=== PATIENT | male | born 1965 | race Caucasian/White ===

== ENCOUNTER 2016-05-30 08:47 | Emergency (ER) | payer OTHER ==
[2016-05-30 08:54] VITALS: BP 171/102
--- NOTE | 2016-05-30 09:13 | ED ---
Lower Extremity - HPI Summary HPI Summary: Patient arrives s/p fall last evening and injuring left ankle and foot. He states he slipped in his driveway and thinks he inverted his ankle. The majority of the pain is located in the foot, but states some is around the ankle. He is unable to bear weight. He has been walking with a cane since yesterday, and the pain has been increasing. Denies hitting his head, LOC or other injuries. Denies pain in the knee or pain in the lower leg. Patient is on lasix and atorvastatin. Patient is obese, but otherwise healthy. Tingling in toes of left foot which began this morning. - History of Current Complaint Chief Complaint: EDExtremityLower Stated Complaint: FALL/LT ANKLE INJURY Time Seen by Provider: 05/30/16 09:00 Hx Obtained From: Patient Mechanism Of Injury: Fall From A Standing Position Onset of Pain: Immediate Onset/Duration: Hours Severity Initially: Moderate Severity Currently: Moderate Pain Intensity: 2 Pain Scale Used: 0-10 Numeric Timing: Constant Location: Is Discrete @ - left lateral ankle and superior foot Associated Signs And Symptoms: Positive: Swelling Aggravating Factor(s): Standing, Ambulation Alleviating Factor(s): Rest, Elevation Able to Bear Weight: No - Risk Factors Gout Risk Factors: Age Over 40, Male, Hyperlipidemia DVT Risk Factors: Negative Septic Arthritis Risk Factor: Negative - Allergies/Home Medications Allergies/Adverse Reactions: Allergies Allergy/AdvReac Type Severity Reaction Status Date / Time No Known Allergies Allergy Verified 09/17/14 09:28 PMH/Surg Hx/FS Hx/Imm Hx Previously Healthy: Yes Endocrine/Hematology History: Denies: Hx Diabetes, Hx Thyroid Disease Cardiovascular History: Reports: Hx Deep Vein Thrombosis, Hx Hypercholesterolemia Denies: Hx Hypertension Respiratory History: Reports: Hx Asthma, Hx Sleep Apnea Denies: Hx Chronic Obstructive Pulmonary Disease (COPD) GI History: Denies: Hx Ulcer - Surgical History Surgery Procedure, Year, and Place: appe Infectious Disease History: No Infectious Disease History: Denies: Hx Hepatitis, Hx Human Immunodeficiency Virus (HIV), History Other Infectious Disease, Traveled Outside the [place] in Last 30 Days - Family History Known Family History: Positive: Cardiac Disease, Hypertension, Diabetes - Social History Occupation: Employed Full-time Lives: With Family Alcohol Use: Occasionally Alcohol Amount: 2-3 BEERS 2-3 TIMES/WEEK Hx Substance Use: No Substance Use Type: Reports: None Smoking Status (MU): Never Smoked Tobacco Type: Cigarettes Amount Used/How Often: quit 2009 Have You Smoked in the Last Year: No Review of Systems Constitutional: Negative Cardiovascular: Negative Respiratory: Negative Genitourinary: Negative Positive: no symptoms reported, see HPI Positive: Arthralgia, Myalgia - lateral ankle and superior foot pain Positive: Other - swelling over lateral side of ankle Neurological: Negative Psychological: Normal All Other Systems Reviewed And Are Negative: Yes Physical Exam - Summary Physical Exam Summary: MSK EXAM: Thorough physical exam was performed, focusing on ankle special tests. Pain on palpation over lateral aspect and superior aspect of ankle over ATFL and deltoid ligaments. No pain on palpation over medial side. Due to patient pain around injury, physical exam was limited. Unable to perform anterior drawer test or talar tilt test d/t pain. Diaz test negative. Limited ROM. Dorsiflexion, great toe extension and plantar flexion intact however limited. No pain on palpation over medial or lateral lower extremity. No pain with knee flexion. Pulses intact bilaterally. No temperature change or pallor noted bilaterally. Slight ecchymosis and swelling noted on lateral aspect. No lesion or disruption of skin is seen. Unable to bear weight. Triage Information Reviewed: Yes Vital Signs On Initial Exam: Initial Vitals Temp Pulse Resp BP Pulse Ox 98.4 F 67 20 171/102 98 05/30/16 08:47 05/30/16 08:47 05/30/16 08:47 05/30/16 08:47 05/30/16 08:47 Vital Signs Reviewed: Yes Appearance: Positive: Well-Appearing, Well-Nourished Skin: Positive: Warm, Skin Color Reflects Adequate Perfusion, Other - swelling over lateral ankle Eyes: Positive: EOMI, ANDRES Neck: Positive: Supple, No Lymphadenopathy Respiratory/Lung Sounds: Positive: Clear to Auscultation Cardiovascular: Positive: Normal Musculoskeletal: Positive: Other - see above Neurological: Positive: Other - tingling in toes of left foot AVPU Assessment: Alert - Mir Coma Scale Coma Scale Total: 15 Procedures - Splinting Hand-Made Type: plaster Splint: posterior walking - with sugar tong Pre-Proc Neuro Vasc Exam: normal Post-Proc Neuro Vasc Exam: normal Diagnostics - Vital Signs Vital Signs Temp Pulse Resp BP Pulse Ox 05/30/16 08:47 98.4 F 67 20 171/102 98 - Laboratory Lab Statement: Any lab studies that have been ordered have been reviewed, and results considered in the medical decision making process. Lower Extremity Course/Dx - Course Course Of Treatment: Based on [place] Ankle Rules, patient sent to imaging. Xray IMPRESSION: OBLIQUE INTRA-ARTICULAR NONDISPLACED FRACTURE OF THE DISTAL FIBULA. Soft tissue swelling noted over the lateral aspect of the ankle. Medial and lateral distal lower extremity without pain and x-rays show no widening of the ankle joint regarding low suspicion for Maisonneuve fx. Plaster posterior walking applied. Neurovascular exam s/p procedure WNL. Crutches given. Patient given orthopedic follow up in 5-7 days. Encouraged Ibuprofen 600mg three times daily with meals for pain. Return precautions given. Educated patient regarding ankle injuries and healing time and need for non-weight bearing status until follow up with ortho. RX for pain medications given d/t uncontrolled pain with Motrin. Patient agrees to see Dr. Avery. Agreed to discharge home. - Diagnoses Differential Diagnosis/HQI/PQRI: Positive: Fracture (Closed), Fracture (Open), Sprain, Strain Provider Diagnoses: Fracture of distal fibula Discharge - Discharge Plan Condition: Stable Disposition: HOME Prescriptions: oxyCODONE/Acetamin 10/325(NF) [Percocet 10/325 (NF)] 1 tab PO Q6H #20 tab MDD 4 Patient Education Materials: Leg Fracture (ED) Referrals: Marlon Avery MD [Medical Doctor] - Easton Espinoza MD [Primary Care Provider] - Additional Instructions: Follow up with Dr. Kauffman office. Call today or tommorow to set up appt. Crutches for ambulation given. Ibuprofen 600mg three times daily with meals for pain. Oxycodone for breakthrough pain not well controlled with ibuprofen. Follow up with orthopedic physician in 5-7 days. If numbness, tingling, decreased sensation, increased pain, temperature changes or pallor noted in toes, come back to ER immediately. Protect the area. Do not bear weight. Ice. Not directly on the skin. Cover with a towel. Apply ice no more than 30 minutes at a time Compression: You may use and keep an beto wrap bandage over the injury to decrease swelling. Again, this should be limited and be taken off periodically to encourage early range of motion and mobilization. Elevate: Try to elevate the injured area above the heart whenever possible.
[2016-05-30] MEDS ORDERED: oxyCODONE/Acetamin 5/325 MG* TAB PO ONE (09:14)
--- NOTE | 2016-05-30 09:47 | RAD ---
INDICATION: Left ankle injury. TECHNIQUE: 3 views of the left ankle were obtained. FINDINGS: Soft tissue swelling is noted along the anterolateral aspect of the ankle. There is an oblique intra-articular nondisplaced fracture of the distal fibula. IMPRESSION: OBLIQUE INTRA-ARTICULAR NONDISPLACED FRACTURE OF THE DISTAL FIBULA.
--- NOTE | 2016-05-30 09:49 | RAD ---
INDICATION: Left foot injury. TECHNIQUE: 3 views of the left foot were obtained. FINDINGS: There is soft tissue swelling present along the dorsal aspect of the foot. Again note is made of an oblique nondisplaced fracture of the distal fibula. No additional fracture is seen. Incidental note is made of moderate to severe osteoarthritic change in the first metatarsal-phalangeal joint. IMPRESSION: OBLIQUE NONDISPLACED FRACTURE OF THE DISTAL FIBULA. NO ADDITIONAL FRACTURE IS SEEN.
[2016-05-30] MEDS ORDERED: Morphine INJ* 2 MG/ML 1 ML CARPUJECT IM ONE (10:31)
== END 2016-05-30 11:47 | disposition home or self-care (01) ==
LOC: ED 08:47
DX: S82.832A Other fracture of upper and lower end of left fibula, initial encounter for closed fracture (principal); W01.0XXA Fall on same level from slipping, tripping and stumbling without subsequent striking against object, initial encounter; R22.9 Localized swelling, mass and lump, unspecified; Y93.89 Activity, other specified; Y92.89 Other specified places as the place of occurrence of the external cause; Y99.9 Unspecified external cause status
CPT/HCPCS: 96372; 99283; A9270-GY; J2270

== ENCOUNTER 2016-08-23 09:27 | Emergency (ER) | payer OTHER ==
[2016-08-23 10:45] VITALS: BP 208/116
--- NOTE | 2016-08-23 12:07 | RAD ---
INDICATION: Cough and dyspnea x4 days COMPARISON: Similar chest x-ray dated September 17, 2014 TECHNIQUE: PA and lateral views of the chest were obtained. FINDINGS: The heart and mediastinum are normal in size and contour. Similar the previous chest x-ray there is a focal linear density at the left lung base. Lungs are grossly clear. On the lateral view chest x-ray there is faint costophrenic angle blunting. Visualized bones are normal for the patient's age. There is no radiographic evidence of free air beneath the diaphragm IMPRESSION: THERE IS A VERY SLIGHT DEGREE OF POSTERIOR COSTOPHRENIC ANGLE BLUNTING WHICH COULD REPRESENT PLEURAL EFFUSIONS ASSOCIATED WITH EXACERBATION OF CONGESTIVE HEART FAILURE IN THE CORRECT CLINICAL SETTING.
--- NOTE | 2016-08-23 22:32 | UC ---
nathaniel Norman Timothy, scribed for Nat Colvin MD on 08/23/16 at 1042 . FLU HPI - HPI Summary HPI Summary: Kenan Aguirre is a 50 yo male presenting to [facility] with head congestion, 9/10 throbbing myalgia, mildly productive cough, sore throat SOB, chest tightness, subjective fever, frontal ARAMBULA since 08/20/16. He states he damaged his spleen in the past and it currently is sore, and he has a Hx of his spleen hurting every time he is ill. In the past day Pt notes frequency of urination, he is on lasix but the frequency is higher than normal. He denies any dizziness, N/V/D. He has self-medicated with OTC medication with no relief. His MHx includes HLD, DVT, asthma, sleep apnea, tobacco use, spleen damage 7 years ago. - History of Current Complaint Chief Complaint: UCGeneralIllness Stated Complaint: BODY ACHES Time Seen by Provider: 08/23/16 11:10 Hx Obtained From: Patient Onset/Duration: Gradual Onset, Lasting Days, Still Present Severity Currently: Moderate Severity Initially: Moderate Pain Intensity: 9 Pain Scale Used: 0-10 Numeric Associated Signs & Symptoms: Positive: Fever, Myalgia, Cough, Sore Throat, Nasal Congestion - Risk Factors Influenza Risk Factors: Negative, Chronic Medical or Immunosuppresive Condition - splenic injury - Allergy/Home Medications Allergies/Adverse Reactions: Allergies Allergy/AdvReac Type Severity Reaction Status Date / Time No Known Allergies Allergy Verified 08/23/16 10:11 Home Medications: Home Medications Cold Medication 08/23/16 [History] Furosemide TAB* [Lasix TAB*] 1 tab PO DAILY 08/23/16 [History Confirmed 08/23/16 ] PMH/Surg Hx/FS Hx/Imm Hx Previously Healthy: No - splenic injury. PAULO, obesity, peripheral edema Other Endocrine History: obesity Cardiovascular History: Deep Vein Thrombosis, Other - HLD Respiratory History: Asthma, Other - sleep apnea - Surgical History Surgical History: Yes Surgery Procedure, Year, and Place: appendix - Family History Known Family History: Positive: Cardiac Disease, Hypertension, Diabetes - Social History Lives: With Family Alcohol Use: Occasionally Alcohol Amount: 2-3 BEERS 2-3 TIMES/WEEK Substance Use Type: None Smoking Status (MU): Former Smoker Type: Cigarettes Amount Used/How Often: quit 2009 Have You Smoked in the Last Year: No When Did the Patient Quit Smoking/Using Tobacco: 2010 Household Exposure Type: Cigarettes - Immunization History Most Recent Influenza Vaccination: FALL 2015 Most Recent Tetanus Shot: 2008 Most Recent Pneumonia Vaccination: 2010 Review of Systems Constitutional: Fever - subjective Skin: Negative Eyes: Negative ENT: Sore Throat, Nasal Discharge Respiratory: Shortness Of Breath Cardiovascular: Chest Pain - tightness Gastrointestinal: Negative Genitourinary: Frequency Motor: Negative Neurovascular: Negative Musculoskeletal: Myalgia Neurological: Headache Psychological: Negative All Other Systems Reviewed And Are Negative: Yes Physical Exam Triage Information Reviewed: Yes Appearance: Obese Vital Signs: Initial Vital Signs Temp 99.6 F 08/23/16 10:13 Pulse 82 08/23/16 10:13 Resp 18 08/23/16 10:13 BP 150/91 08/23/16 10:13 Pulse Ox 98 08/23/16 10:13 Vital Signs Reviewed: Yes Eye Exam: Normal ENT Exam: Normal ENT: Positive: Pharyngeal erythema - mild, Nasal congestion Dental Exam: Normal Neck exam: Normal Neck: Positive: Supple, No Lymphadenopathy Respiratory: Positive: Lungs clear - but distant breaath sounds. Cardiovascular Exam: Normal Cardiovascular: Positive: RRR, No Murmur, Brisk Capillary Refill Abdominal Exam: Normal Abdomen Description: Positive: Nontender Bowel Sounds: Positive: Present Musculoskeletal Exam: Normal Neurological Exam: Normal Neurological: Positive: Muscle Tone Normal Psychological Exam: Normal Skin Exam: Normal - Good turgor - Additional Comments Constitutional: Pt is awake, A&Ox3, in no acute distress,and cooperative. HENT: atraumatic, ANDRES, normal TMs and canals bilaterally with no discharge. The nose shows no discharge or lesions. No sinus tenderness Throat: erythematous, no purulence, teeth in good repair. There is no uvula. Neck: supple, no masses or adenopathy, no JVD, no thyromegaly. Respiratory: Lungs CTA bilaterally, no wheezing, rales, rhonchi. Distant breath sounds. Cardiovascular: RRR, no murmur. Abd: soft, obese, diffuse tenderness, mainly over the abd muscles, no masses, no organomegaly, no CVA tenderenss Bowel Sounds: present and normal Musculoskeletal: Full ROM, good color to extremities, good tone, power 5/5 in all extremities Neuro: AOx3, cooperative, coherent Skin: warm, dry, and clear, good turgor Diagnostics - Radiology CXR Xray Interpretation: No Acute Changes - IMPRESSION: THERE IS A VERY SLIGHT DEGREE OF POSTERIOR COSTOPHRENIC ANGLE BLUNTING WHICH COULD REPRESENT PLEURAL EFFUSIONS ASSOCIATED WITH EXACERBATION OF CONGESTIVE HEART FAILURE IN THE CORRECT CLINICAL SETTING. Radiology Interpretation Completed By: Radiologist - EKG Cardiac Rate: NL - 1029 - NSR @ 72 BPM, normal PRN, no ST segment elevations or depressions, normal EKG. Re-Evaluation - Re-Evaluation First Eval Re-Evaluation Time: 12:14 Change: Unchanged Comment: Discussed lab and imaging study results with Pt. Pt is agreeable to current course of Tx. Flu Course/Dx - Course Course Of Treatment: Kenan Aguirre is a 50 yo male presenting to [facility] with 9/10 myalgia, head congestion, cough, SOB, and spleen pain since 08/20/16 with a Hx of spleen pain when ill since splenic damage 7 years prior and frequency in uriantion since today. His EKG was WNL at 72 BPM. His Group A Rapid Strep Test was negative. His CXR suggests no acute changes. His UA shows elevated bilirubin and was otherwise WNL. After clinical examination and review of his lab and imaging studies, he will be discharged home with cough, URI, and elevated blood pressure without diagnosis of HTN. - Differential Dx/Diagnosis Differential Diagnosis/HQI/PQRI: Upper Respiratory Infection Provider Diagnoses: cough, URI, elevated BP without Dx of HTN Discharge - Discharge Plan Condition: Stable Disposition: HOME Prescriptions: Benzonatate CAP* [Tessalon 100 MG CAP*] 200 mg PO TID PRN #30 cap PRN Reason: Cough Patient Education Materials: Acute Cough (ED), Upper Respiratory Infection (ED) , Hypertension (ED) Forms: *Work Release Referrals: Easton Espinoza MD [Primary Care Provider] - 2 Days Additional Instructions: Please follow up with your primary care physician regarding your visit to urgent care today, particularly regarding your high blood pressure readings. Please medicated with Mucinex DM every 12 hours in addition to prescriptions. Return to urgent care with any new or recurring symptoms. The documentation as recorded by the nathaniel lee Timothy accurately reflects the service I personally performed and the decisions made by me, Nat Colvin MD.
== END 2016-08-23 12:33 | disposition home or self-care (01) ==
LOC: UCEAST 09:27
DX: N39.0 Urinary tract infection, site not specified (principal); R03.0 Elevated blood-pressure reading, without diagnosis of hypertension; E78.5 Hyperlipidemia, unspecified; Z86.718 Personal history of other venous thrombosis and embolism; Z87.891 Personal history of nicotine dependence
CPT/HCPCS: 71020; 81003; 87651; 93005; 99212; G0463

== ENCOUNTER 2016-11-30 12:37 | Emergency (ER) | payer OTHER ==
[2016-11-30 12:50] VITALS: BP 180/100
--- NOTE | 2016-12-31 08:30 | UC ---
Amilcar Norman SooYoung, scribed for Surekha Hidalgo DO on 11/30/16 at 1258 . Abdominal Pain Male HPI - HPI Summary HPI Summary: A 50 y/o M presents to [facility] with c/o severe, undulating R-sided abd pain onset this AM approx 0830. Pain radiates around his R-side to his flank and back. Pain is ranked as 9/10 and described as cramping. Associated: SOB secondary to the pain. Denies: fever, CP, n/v/d, urinary sx. Aggravating factors: deep breaths, eating. He ate ziti for lunch. No alleviating factors. PSHx: appy. Pt still has his gallbladder. - History of Current Complaint Chief Complaint: UCAbdominalPain Stated Complaint: ABDOMINAL PAIN Hx Obtained From: Patient Onset/Duration: Sudden Onset, Lasting Hours - onset this AM, Still Present Severity Initially: Severe Severity Currently: Severe Pain Intensity: 9 Pain Scale Used: 0-10 Numeric Location: Discrete At: RUQ Radiates: Yes Radiates to: Back, Flank Character: Cramping Aggravating Factor(s): Food, Deep Breaths Alleviating Factor(s): Nothing Associated Signs And Symptoms: Positive: Other - SOB second to abd pain. Negative: Fever, Chest Pain, Urinary Symptoms, Nausea, Vomiting, Diarrhea - Allergies/Home Medications Allergies/Adverse Reactions: Allergies Allergy/AdvReac Type Severity Reaction Status Date / Time No Known Allergies Allergy Verified 12/25/16 06:50 PMH/Surg Hx/FS Hx/Imm Hx Previously Healthy: No Cardiovascular History: Deep Vein Thrombosis, Other Other Cardiovascular History: hypercholesterolemia - Surgical History Surgical History: Yes Surgery Procedure, Year, and Place: appendix - Family History Known Family History: Positive: Cardiac Disease, Hypertension, Diabetes, Other - mother - gallbladder dz - Social History Occupation: Employed Full-time Lives: With Family Alcohol Use: Occasionally Alcohol Amount: 2-3 BEERS 2-3 TIMES/WEEK Substance Use Type: None Smoking Status (MU): Former Smoker Type: Cigarettes Amount Used/How Often: quit 2009 Have You Smoked in the Last Year: No When Did the Patient Quit Smoking/Using Tobacco: 2010 Household Exposure Type: Cigarettes - Immunization History Most Recent Influenza Vaccination: FALL 2015 Most Recent Tetanus Shot: 2008 Most Recent Pneumonia Vaccination: 2010 Review of Systems Constitutional: Negative Skin: Negative Eyes: Negative ENT: Negative Respiratory: Shortness Of Breath - secondary to pain Cardiovascular: Negative Gastrointestinal: Abdominal Pain - radiating to flank and back Genitourinary: Negative Motor: Negative Neurovascular: Negative Musculoskeletal: Negative Neurological: Negative Psychological: Negative All Other Systems Reviewed And Are Negative: Yes Physical Exam Triage Information Reviewed: Yes Appearance: Well-Appearing, Well-Nourished, Pain Distress - moderate to severe Vital Signs: Initial Vital Signs Temp 96.9 F 11/30/16 12:45 Pulse 70 11/30/16 12:45 Resp 16 11/30/16 12:45 BP 180/100 11/30/16 12:45 Pulse Ox 99 11/30/16 12:45 Vital Signs Reviewed: Yes Eyes: Positive: Conjunctiva Clear, Other: - no sclera icterus. Negative: Discharge ENT: Positive: Hearing grossly normal. Negative: Muffled/hoarse voice Neck exam: Normal Neck: Positive: Supple Respiratory: Positive: Lungs clear, Normal breath sounds, No respiratory distress, No accessory muscle use Cardiovascular: Positive: RRR, No Murmur Abdomen Description: Positive: Soft, Other: - exquisitely tender to palpation in RUQ, RLQ, pain refers to the back and R flank Bowel Sounds: Positive: Present Musculoskeletal Exam: Normal Musculoskeletal: Positive: Strength Intact Neurological: Positive: Alert, Muscle Tone Normal Psychological Exam: Normal Psychological: Positive: Age Appropriate Behavior Skin Exam: Normal, Other - warm, nml color, dry. no jaundice Abd Pain Male Course/Dx - Course Course Of Treatment: High blood pressure noted. Medications reviewed this visit. Former smoker. - Differential Dx/Clinical Impression Differential Diagnosis/HQI/PQRI: Gall Bladder Disease, Renal Colic, Ureteral Stone, Urinary Tract Infection Provider Diagnoses: 1. ruq pain. 2. Elevated blood pressure without diagnosis of hypertension. Discharge - Discharge Plan Condition: Stable Disposition: TRANS HIGHER L OF CARE FAC Referrals: Easton Espinoza MD [Primary Care Provider] - Additional Instructions: Your blood pressure was elevated at this visit. That does not mean you have hypertension, it is probably due to your current condition. Please follow up with your primary care provider. Please return to Urgent Care if you experience new or worsening symptoms. Lab Results - Lab Results Lab Results: 11/30/16 12:50 POC Urine Color [place] POC Urine Clarity Clear POC Urine pH 6.5 POC Ur Specif [place] >= 1.030 POC Urine Protein 1+ H POC Ur Glucose (UA) Negative POC Urine Ketones Negative POC Urine Blood Negative POC Urine Nitrite Negative POC Urine Bilirubin Negative POC Urine Urobilinogen 2.0 H POC U Leukocyte Esteras Negative The documentation as recorded by the Amilcar lee SooYoung accurately reflects the service I personally performed and the decisions made by , Surekha Hidalgo DO.
== END 2016-11-30 13:45 | disposition short-term general hospital (02) ==
LOC: UCEAST 12:37
DX: R10.11 Right upper quadrant pain (principal); R06.02 Shortness of breath; R03.0 Elevated blood-pressure reading, without diagnosis of hypertension; E78.00 Pure hypercholesterolemia, unspecified; Z86.718 Personal history of other venous thrombosis and embolism; Z87.891 Personal history of nicotine dependence
CPT/HCPCS: 81003; 99213; G0463

== ENCOUNTER 2016-11-30 13:58 | Emergency (ER) | payer OTHER ==
[2016-11-30] MEDS ORDERED: NS 0.9% 1000 ML* 1,000 ML IV ONE (14:15)
[2016-11-30 14:30] LABS: Hematocrit 46 % (42-52); Hemoglobin 15.9 g/dl (14.0-18.0); Mean Corpuscular HGB Conc 35 g/dl (31-36); Mean Corpuscular Hemoglobin 31 pg (27-31); Mean Corpuscular Volume 90 fL (80-94); Mean Platelet Volume 8 um3 (7.4-10.4); Red Blood Count 5.07 10^6/ul (4.0-5.4); Red Cell Distribution Width 14 % (10.5-15)
[2016-11-30 14:57] LABS: Albumin 4.2 g/dL (3.2-5.2); C Reactive Protein 1.65 mg/L (< 5.00); Calcium 9.3 mg/dL (8.6-10.3); EGFR African American 94.4 (>60); EGFR Non-African American 73.4 (>60); Globulin 3.2 g/dL (2-4); Total Bilirubin 0.5 mg/dL (0.2-1.0); Total Protein 7.4 g/dL (6.4-8.9)
[2016-11-30 15:34] LABS: Potassium 4.5 mmol/L (3.5-5.0)
[2016-11-30] MEDS ORDERED: Iohexol 300* (CONTRAST) 10 ML SDV IV ONE (16:03)
--- NOTE | 2016-11-30 17:53 | RAD ---
HISTORY: Right upper quadrant pain. COMPARISONS: Same day CT abdomen pelvis that shows mild to moderate right-sided hydronephrosis. TECHNIQUE: Multiple transverse and longitudinal ultrasound images were obtained of the right upper quadrant. FINDINGS: LIVER: The liver is enlarged measuring up to 25 cm in greatest dimension. The liver is homogenously hyperechogenic with the exception of the liver immediately adjacent to the gallbladder. Normal hepatic and portal venous blood flow is duplicated with color flow imaging. There is no gross intrahepatic biliary duct dilatation. GALLBLADDER AND EXTRAHEPATIC BILIARY DUCT: The gallbladder is normal in appearance without intraluminal stones or other soft tissue masses. There is no pericholecystic fluid or gallbladder wall thickening. The common bile duct measures a maximum diameter of . PANCREAS: The portions of the pancreas not obscured by bowel gas are normal in appearance. RIGHT KIDNEY: There is very mild right-sided hydronephrosis with gross dilatation of the renal pelvis and proximal most ureter similar to the appearance of the same day CT examination. AORTA AND IVC: The visualized portions are normal in appearance and not pathologically dilated. IMPRESSION: 1. 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 2. MILD RIGHT KIDNEY HYDRONEPHROSIS WITH ENLARGEMENT OF THE RIGHT RENAL PELVIS SIMILAR TO THE SAME DAY CT EXAMINATION.
[2016-11-30 17:55] VITALS: BP 166/82
[2016-11-30] MEDS: Ondansetron INJ* 2 MG/ML VIAL IV ONE ×2 (18:47→19:08)
[2016-11-30] MEDS: Morphine INJ* 4 MG/ML 1 ML CARPUJECT IV ONE ×2 (18:47→19:08)
[2016-11-30 18:59] LABS: Urine Bilirubin Negative (Negative); Urine Glucose Negative (Negative); Urine Nitrite Negative (Negative)
--- NOTE | 2016-11-30 19:14 | RAD ---
CLINICAL HISTORY: Right of midline lower abdominal pain. Relevant surgical history includes appendectomy. COMPARISON: Similar CT examination November 30, 2013 TECHNIQUE: Contrast enhanced CT examination of the abdomen and pelvis from the lung bases through the initial tuberosities. The patient received 150 mL Omnipaque 300 intravenously prior to imaging.The patient received oral contrast as well prior to imaging. FINDINGS: VISUALIZED LUNG BASES: The visualized lung bases are grossly clear. There is no pleural effusion. ABDOMEN AND PELVIS: The liver is homogenously hypodense. There are no suspicious focal liver lesions. The spleen, pancreas and adrenal glands are grossly normal in appearance. The gallbladder is normal. The left kidney is normal in appearance without focal mass, calcification or signs of hydronephrosis. There is a mild degree of right-sided hydronephrosis. The right renal pelvis is enlarged with a faint amount of infiltration in the surrounding retroperitoneal fat. Depicted best on the coronal plane images there is a sharp transition zone from dilated pelvis to proximal right ureter (coronal image 58 of 130). Distal to this point the right ureter is normal in size. No stones are seen in either ureter. The urinary bladder is mostly decompressed but there are no acute abnormalities. The oral contrast has progressed as far as the base of the cecum. The small bowel is not pathologically dilated. Surgical material seen in the base of the cecum consistent with the patient's reported history of appendectomy. There is no gross retroperitoneal or mesenteric lymphadenopathy. The pelvic viscera is normal in appearance. The mildly calcified abdominal aorta and iliac arteries are normal in course and diameter. Degenerative changes include multilevel loss of intervertebral disc height involving the lower thoracic and lumbar spine.There are no sinister bone lesions. IMPRESSION: 1. CT findings are most consistent with right side ureteropelvic junction obstruction without a readily apparent etiology. There are no renal calculi identified in the collecting systems, ureters or urinary bladder. 2. Additional chronic, degenerative and iatrogenic findings described in the body the report.
[2016-11-30] MEDS ORDERED: Ketorolac INJ* 30 MG/ML 1 ML VIAL IV PUSH ONE (19:19)
[2016-11-30 19:53] LABS: Urine Bacteria Absent (Absent)
[2016-11-30] MEDS ORDERED: oxyCODONE/Acetamin 5/325 MG* TAB PO ONE (20:28)
--- NOTE | 2016-12-08 15:10 | ED ---
Gary Norman Alfonso, scribed for Chad Yin MD on 11/30/16 at 1418 . Abdominal Pain/Male - HPI Summary HPI Summary: This patient is a 50 year old M BIBA from [facility] to [facility] with a chief complaint of right-sided abdominal pain since 0800 this morning. The CC is described as sharp and cramping. The pain radiates to his back. The patient rates the current pain 2/10 in severity, but it was much more severe [employer]. Symptoms aggravated by touch. Symptoms alleviated by nothing. Patient denies fever, chills, diaphoresis, vomiting, dysuria, hematuria, and testicular pain. He last ate at lunch today. PSHx appendectomy. Former tobacco smoker (7 years ago quit). - History of Current Complaint Chief Complaint: EDAbdPain Stated Complaint: ABD PAIN Time Seen by Provider: 11/30/16 14:14 Hx Obtained From: Patient Onset/Duration: Sudden Onset, Lasting Hours, Still Present Timing: Constant Severity Initially: Severe Severity Currently: Mild Pain Intensity: 2 Pain Scale Used: 0-10 Numeric Location: Discrete At: RUQ, Discrete At: RLQ Radiates: Yes Radiates to: Back Character: Sharp, Cramping Aggravating Factor(s): Other: - Touch Alleviating Factor(s): Nothing Associated Signs And Symptoms: Positive: Other - Patient denies fever, chills, diaphoresis, vomiting, dysuria, hematuria, and testicular pain - Allergies/Home Medications Allergies/Adverse Reactions: Allergies Allergy/AdvReac Type Severity Reaction Status Date / Time No Known Allergies Allergy Verified 11/30/16 14:12 PMH/Surg Hx/FS Hx/Imm Hx Endocrine/Hematology History: Denies: Hx Diabetes, Hx Thyroid Disease Cardiovascular History: Reports: Hx Deep Vein Thrombosis, Hx Hypercholesterolemia Denies: Hx Hypertension Respiratory History: Reports: Hx Asthma, Hx Sleep Apnea Denies: Hx Chronic Obstructive Pulmonary Disease (COPD) GI History: Denies: Hx Ulcer - Surgical History Surgery Procedure, Year, and Place: appendix Infectious Disease History: No Infectious Disease History: Denies: Hx Hepatitis, Hx Human Immunodeficiency Virus (HIV), History Other Infectious Disease, Traveled Outside the [place] in Last 30 Days - Family History Known Family History: Positive: Cardiac Disease, Hypertension, Diabetes - Social History Alcohol Use: Occasionally Alcohol Amount: 2-3 BEERS 2-3 TIMES/WEEK Hx Substance Use: No Substance Use Type: Reports: None Smoking Status (MU): Former Smoker - Quit in approx. 2009 Type: Cigarettes Amount Used/How Often: quit 2009 Have You Smoked in the Last Year: No Review of Systems Negative: Fever, Chills, Skin Diaphoresis Negative: Erythema Negative: Sore Throat Negative: Chest Pain Negative: Shortness Of Breath, Cough Positive: Abdominal Pain - right-sided. Negative: Vomiting, Nausea Positive: other - Negative testicular pain. Negative: dysuria, hematuria Negative: Myalgia, Edema Negative: Rash Neurological: Other - Negative dizziness All Other Systems Reviewed And Are Negative: Yes Physical Exam Triage Information Reviewed: Yes Vital Signs On Initial Exam: Initial Vitals Temp Pulse Resp BP Pulse Ox 98.3 F 64 20 158/83 98 11/30/16 14:05 11/30/16 14:05 11/30/16 14:05 11/30/16 14:05 11/30/16 14:05 Vital Signs Reviewed: Yes Appearance: Positive: Well-Appearing, No Pain Distress, Obese Skin: Positive: Warm, Dry Head/Face: Positive: Normal Head/Face Inspection Eyes: Positive: Conjunctiva Clear Neck: Positive: Other: - Musculoskeletal ROM normal neck. (-) JVD, (-) Stridor, (-) Tracheal deviation, (-) Cervical adenopathy Respiratory/Lung Sounds: Positive: Other - Effort normal. (-) Respiratory distress, (-) Wheezes, (-) Rales Cardiovascular: Positive: RRR, Other - Heart sounds normal; Intact distal pulses ; The pedal pulses are 2+ and symmetric. Radial pulses are 2+ and symmetric. (- ) Murmur Abdomen Description: Positive: Soft, Guarding, Other: - Exquisite RUQ tenderness and moderate RLQ tenderness. No rebound.. Negative: Distended Musculoskeletal: Negative: Edema Left, Edema Right Neurological: Positive: Alert, Oriented to Person Place, Time Psychiatric: Positive: Affect/Mood Appropriate Diagnostics - Vital Signs Vital Signs Temp Pulse Resp BP Pulse Ox 11/30/16 14:05 98.3 F 64 20 158/83 98 - Laboratory Result Diagrams: 11/30/16 13:30 11/30/16 13:30 Lab Statement: Any lab studies that have been ordered have been reviewed, and results considered in the medical decision making process. - CT A/P CT Interpretation Completed By: Radiologist - 1. CT findings are most consistent with right side ureteropelvic junction obstruction without a readily apparent etiology. There are no renal calculi identified in the collecting systems, ureters or urinary bladder. 2. Additional chronic, degenerative and iatrogenic findings described in the body the report. ED physician has reviewed this radiology report and agrees. - Additional Comments Diagnostic Additional Comments: Gallbladder US reveals, per radiologist, 1. 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 2. MILD RIGHT KIDNEY HYDRONEPHROSIS WITH ENLARGEMENT OF THE RIGHT RENAL PELVIS SIMILAR TO THE SAME DAY CT EXAMINATION. ED physician has reviewed this radiology report and agrees. Re-Evaluation - Re-Evaluation First Eval Re-Evaluation Time: 19:48 Change: Unchanged Second Eval Re-Evaluation Time: 20:25 Change: Improved Comment: Patient reports his pain has fully resolved. Abdominal Pain Fem Course/Dx - Course Assessment/Plan: This patient is a 50 year old M BIBA from [facility] to [facility] with a chief complaint of right-sided abdominal pain since 0800 this morning. The CC is described as sharp and cramping. The pain radiates to his back. The patient rates the current pain 2/10 in severity, but it was much more severe [employer]. Symptoms aggravated by touch. Symptoms alleviated by nothing. Patient denies fever, chills, diaphoresis, vomiting, dysuria, hematuria, and testicular pain. He last ate at lunch today. PSHx appendectomy. Former tobacco smoker (7 years ago quit). CT A/P reveals 1. CT findings are most consistent with right side ureteropelvic junction obstruction without a readily apparent etiology. There are no renal calculi identified in the collecting systems, ureters or urinary bladder. 2. Additional chronic, degenerative and iatrogenic findings described in the body the report. ED physician has reviewed this radiology report and agrees. Gallbladder US reveals, per radiologist, 1. 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 2. MILD RIGHT KIDNEY HYDRONEPHROSIS WITH ENLARGEMENT OF THE RIGHT RENAL PELVIS SIMILAR TO THE SAME DAY CT EXAMINATION. ED physician has reviewed this radiology report and agrees. Patient will be discharged with follow up from PCP and urology. The patient is agreeable with this plan. - Diagnoses Provider Diagnoses: Urethral colic, suspected passed stone Discharge - Discharge Plan Condition: Stable Disposition: HOME Patient Education Materials: Renal Colic (ED) Referrals: Easton Espinoza MD [Primary Care Provider] - 3 Days Mitchell Green MD [Medical Doctor] - 2 Days Additional Instructions: RETURN TO THE EMERGENCY DEPARTMENT FOR CHANGING OR WORSENING SYMPTOMS. The documentation as recorded by the Gary lee Alfonso accurately reflects the service I personally performed and the decisions made by , Chad Yin MD.
== END 2016-11-30 20:53 | disposition home or self-care (01) ==
LOC: ED 13:58
DX: R10.9 Unspecified abdominal pain (principal); Z87.891 Personal history of nicotine dependence; N36.8 Other specified disorders of urethra
CPT/HCPCS: 36415; 74177; 76705; 80053; 81003; 81015; 83605; 83690; 85025; 86140; 96374; 96375; 99282; A9270-GY; J1885; J2270; J2405; Q9967

== ENCOUNTER 2016-12-25 06:14 | Day surgery (SDC) | payer OTHER ==
--- NOTE | 2016-12-21 20:16 | HP ---
CC: Dr. Easton Espinoza * ADMITTING HISTORY AND PHYSICAL: DATE OF ADMISSION: 12/25/16 ADMITTING DIAGNOSES: 1. Right hydronephrosis. 2. Right ureteropelvic junction obstruction. PLANNED PROCEDURE: Right retrograde, right stent insertion, and possible balloon dilatation. SURGEON: Dr. Green. HISTORY OF PRESENT ILLNESS: Kenan Aguirre is a 51-year-old gentleman, who had initially been evaluated in the emergency room due to right flank and right- sided abdominal pain. CT scan had revealed right hydronephrosis and subsequently a diuretic nuclear scan was obtained. The diuretic nuclear scan revealed decreased function in the right kidney and no significant washout of the radioisotope following Lasix administration suggestive of high-grade obstruction of the right kidney. I suspect that he has a congenital ureteropelvic junction obstruction and is now being brought in for further evaluation and management. PAST MEDICAL HISTORY: Significant for high cholesterol. PAST SURGICAL HISTORY: Significant for appendectomy. MEDICATIONS ON ADMISSION: 1. Zocor 20 mg a day. 2. Lasix 20 mg daily. ALLERGIES: No known drug allergies. SOCIAL HISTORY: He is a former smoker, who quit in 2009 and had a 25- to 30- pack-year smoking history prior to that. REVIEW OF SYSTEMS: He is otherwise in excellent health. There is no history of diabetes mellitus or any other major systemic illness. PHYSICAL EXAMINATION GENERAL: Reveals a pleasant, healthy-appearing, middle-aged gentleman. VITAL SIGNS: Blood pressure is 140/92, pulse 62 per minute regular, temperature 97.5, oxygen saturation 98% on room air. LUNGS: Clear bilaterally. CARDIOVASCULAR: Regular rate and rhythm. S1 and S2. ABDOMEN: Soft with mild right flank tenderness. 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 PLANNED PROCEDURE: Right retrograde, right stent insertion, possible balloon dilatation. [id number]/[facility] #: [id number] [facility]
[~2016-12-25 06:14] MED LIST: Buffered Lidocaine 0.9% SYRIN* 5 ML/SYR SYRINGE INTRADERM ONE; Sodium Citrate/Citric Acid* 15 ML UDC PO ONE
[2016-12-25] MEDS ORDERED: Sodium Citrate/Citric Acid* 15 ML UDC ONE (06:47)
[2016-12-25] MEDS ORDERED: Buffered Lidocaine 0.9% SYRIN* 5 ML/SYR SYRINGE ONE (06:47)
[2016-12-25] MEDS ORDERED: cefTRIAXone(*) 2 GM ADDV.VIAL IVPB ONE (07:00)
[2016-12-25] MEDS ORDERED: Iohexol 180 (CONTRAST) 10 ML SDV IV ONE (07:14)
[2016-12-25] MEDS ORDERED: Lidocaine 2% PF * 5 ML VIAL ONE (07:34)
[2016-12-25] MEDS ORDERED: Propofol* 10 MG/ML 20 ML BTL IV PUSH ONE ×2 (07:34→08:35)
[2016-12-25] MEDS ORDERED: fentaNYL* 50 MCG/ML 2 ML VIAL (100 MCG VIAL) ONE ×2 (07:34→10:17)
[2016-12-25] MEDS ORDERED: Ondansetron INJ* 2 MG/ML VIAL IV PRN (07:49)
[2016-12-25] MEDS ORDERED: Furosemide IV* 10 MG/ML 2 ML VIAL (20 MG) ONE ×2 (08:33→09:04)
[2016-12-25] MEDS ORDERED: Ketorolac INJ* 30 MG/ML 1 ML VIAL ONE (08:34)
[2016-12-25] MEDS ORDERED: Tamsulosin CAP* 0.4 MG ONE (09:11)
--- NOTE | 2016-12-25 09:54 | RAD ---
INDICATION: RIGHT retrograde ureteral balloon dilatation and stent placement. COMPARISON: November 30, 2016 CT. TECHNIQUE: 19 seconds fluoroscopy. FINDINGS: Spot images document RIGHT retrograde pyelogram with moderately severe pelvicaliectasis, balloon dilatation of the ureteropelvic junction, and ureteral stent placement. IMPRESSION: Procedural fluoroscopy. CPT II Codes: 6045F
[2016-12-25] MEDS ORDERED: oxyCODONE/Acetamin 5/325 MG* TAB ONE (10:14)
[2016-12-25] MEDS: fentaNYL* 50 MCG/ML 2 ML VIAL (100 MCG VIAL) IV PRN ×2 (10:15→10:20)
[2016-12-25] MEDS ORDERED: hydrALAZINE IV* 20 MG/ML VIAL ONE (10:22)
[2016-12-25 10:43] VITALS: BP 130/84
--- NOTE | 2016-12-25 11:34 | OP ---
CC: Dr. Easton Espinoza * DATE OF OPERATION: 12/25/16 - [facility] DATE OF : 61 SURGEON: Mitchell Green MD. ANESTHESIOLOGIST: Dr. Ledezma. ANESTHESIA: General. PRE-OP DIAGNOSES: 1. Right hydronephrosis. 2. Right ureteropelvic junction obstruction. POST-OP DIAGNOSES: 1. Right hydronephrosis. 2. Right ureteropelvic junction obstruction. OPERATIVE PROCEDURE: Cystoscopy, right retrograde pyelogram, right ureteral balloon dilatation and right stent insertion. INDICATIONS: Kenan Aguirre is a 51-year-old gentleman, who had been evaluated for right flank pain. Workup was consistent with congenital right ureteropelvic junction obstruction. COMPLICATIONS: None. STENT USED: 8-Mauritian stent, right ureter. OPERATIVE FINDINGS: 1. Urethral stricture. 2. Mild median lobe enlargement of the prostate. 3. Right hydronephrosis with right ureteropelvic junction obstruction. POSTOPERATIVE CONDITION: Stable. DESCRIPTION OF PROCEDURE: After induction of general anesthesia, the patient was placed in dorsal lithotomy position. Sequential compression devices were in place and functioning. Initial cystoscopy revealed a stricture in the proximal bulbar urethra. The prostate was mildly enlarged especially the median lobe. The bladder was examined and appeared normal. A guidewire was introduced into the right orifice. Retrograde pyelogram revealed a normal appearing distal mid and proximal right ureter. There was a definite tapering noted at the ureteropelvic junction with a dilated renal pelvis and right hydronephrosis. The overall picture was consistent with a ureteropelvic junction obstruction. The ureter and the ureteropelvic junction were carefully dilated first by introducing the 4-Mauritian open ended catheter through it and next by introducing an 8-Mauritian open ended catheter through the ureteropelvic junction into the renal pelvis. Once this was done, next a balloon dilator was introduced and ureteropelvic junction was successfully balloon dilated. The balloon was left inflated for about 5 minutes. It was then deflated and removed and 8-Mauritian stent was introduced and positioned under fluoroscopy with good proximal and distal positioning obtained. The patient tolerated the procedure satisfactorily and was transferred back to recovery area in stable condition. [id number]/[facility] #: [id number] [facility]TDD
== END 2016-12-25 11:07 | disposition home or self-care (01) ==
LOC: OR 06:14
PROVIDERS: ATTEND Urology
DX: Q62.11 Congenital occlusion of ureteropelvic junction (principal); N13.30 Unspecified hydronephrosis; N35.9 Urethral stricture, unspecified; N40.0 Benign prostatic hyperplasia without lower urinary tract symptoms; Z96.0 Presence of urogenital implants; E78.00 Pure hypercholesterolemia, unspecified; Z87.891 Personal history of nicotine dependence; G47.33 Obstructive sleep apnea (adult) (pediatric)
CPT/HCPCS: 74420; A9270-GY; C1876; J0360; J0696; J1580; J1885; J1940; J2704; J3010

== ENCOUNTER 2017-10-28 16:22 | Emergency (ER) | payer OTHER ==
[2017-10-28] MEDS ORDERED: Famotidine TAB* 20 MG PO ONE (17:18)
[2017-10-28] MEDS ORDERED: Acetaminophen TAB* 325 MG PO ONE (17:18)
[2017-10-28] MEDS ORDERED: Tetan/Diph/Pertus SYR(Tdap)* 0.5 ML SYR(BOOSTRIX) use SYR IM ONE (17:24)
--- NOTE | 2017-10-28 17:33 | ED ---
Head Injury - HPI Summary HPI Summary: This is scribe Linda Cali documenting for attending Dr. Jeramie VIDES. 51 yo w M with hx GERD, otherwise well, BIBA for head injury and scalp laceration that ocurred just prior to admission. Pt states he was coming upstairs from basement and misjudged the height and struck his head. No LOC. was present on the scene immediately and states pt bled "quite a bit". No N, V, but does c/o his usual "GERD". Pt c/o headache now at site of the laceration. Pt did not take anything for pain prior to coming to the ED. Pt is not on any blood thinners. Does not take ASA daily. I, Dr. Bobo, personally performed the services described in this documentation as scribed in my presence and it is both accurate and complete. - History Of Current Complaint Chief Complaint: EDHeadInjury Stated Complaint: HEAD LAC Time Seen by Provider: 10/28/17 16:38 Hx Obtained From: Patient, Family/Hr Payroll Coordinator - Mechanism Of Injury: Direct Blow Onset/Duration: Started Minutes Ago, Traumatic, Still Present Onset of Pain: Immediate Severity Currently: Moderate Severity Initially: Mild Pain Intensity: 2 Pain Scale Used: 0-10 Numeric Location of Head Injury: Frontal, Occipital - top and back of scalp Location: Discrete At: - top and back of his head Character: Sharp Aggravating Factor(s): Other: - nothing Alleviating Factor(s): Other: - nothing Associated Signs And Symptoms: Headache - Risk Factors SDH Risk Factor: Male - Allergies/Home Medications Allergies/Adverse Reactions: Allergies Allergy/AdvReac Type Severity Reaction Status Date / Time No Known Allergies Allergy Verified 10/28/17 16:28 PMH/Surg Hx/FS Hx/Imm Hx Endocrine/Hematology History: Denies: Hx Diabetes, Hx Thyroid Disease Cardiovascular History: Reports: Hx Deep Vein Thrombosis, Hx Hypercholesterolemia Denies: Hx Hypertension Respiratory History: Reports: Hx Asthma, Hx Sleep Apnea - CPAP Denies: Hx Chronic Obstructive Pulmonary Disease (COPD) GI History: Reports: Hx Gastroesophageal Reflux Disease - prn otc med Denies: Hx Ulcer History: Reports: Hx Renal Disease - RT HYDRONEPHROSIS Psychiatric History: Denies: Hx Anxiety - Surgical History Surgery Procedure, Year, and Place: appendectomy [address] [place]. right ureteral stent Hx Anesthesia Reactions: No Infectious Disease History: No Infectious Disease History: Denies: Hx Hepatitis, Hx Human Immunodeficiency Virus (HIV), History Other Infectious Disease, Traveled Outside the [place] in Last 30 Days - Family History Known Family History: Positive: Cardiac Disease, Hypertension, Diabetes - Social History Occupation: Employed Full-time Lives: With Family Alcohol Use: Weekly Alcohol Amount: reports 4 beers or wine per week Hx Substance Use: No Substance Use Type: Reports: None Smoking Status (MU): Former Smoker Type: Cigarettes Amount Used/How Often: 1 ppd for 28 yrs Have You Smoked in the Last Year: No Review of Systems Constitutional: Negative Eyes: Negative Cardiovascular: Negative Respiratory: Negative Positive: Other - baseline GERD . Negative: Vomiting, Nausea Positive: Other - head injury, scalp laceration Skin: Negative Positive: Headache Psychological: Normal All Other Systems Reviewed And Are Negative: Yes Physical Exam - Summary Physical Exam Summary: Appearance: Well-appearing, moderate pain distress, well-nourished Skin: Warm, color reflects adequate perfusion, dry, scalp laceration as below Head: scalp laceration to top/posterior scalp, 4cm by 4cm triangular flap lac, not deep to galea, bleeding controlled Eyes: Conjunctiva clear, PERRL EOMI ENT: Normal inspection Neck: Supple, no nodes, no JVD, nontender Respiratory: Lungs clear, normal breath sounds, no respiratory distress Cardio: RRR, No murmur, pulses normal, brisk capillary refill Abdomen: Soft, nontender Musculoskeletal: Strength Intact/ROM intact, no calf tenderness, no edema. Psychological: Normal Neuro: Alert, muscle tone normal, no focal deficit, moves all extrem well, sensation grossly intact. Vital Signs On Initial Exam: Initial Vitals Temp Pulse Resp BP Pulse Ox 98.3 F 80 19 174/100 98 10/28/17 16:24 10/28/17 16:24 10/28/17 16:24 10/28/17 16:24 10/28/17 16:24 Procedures - Laceration/Wound Repair 1 Location: head Description: Irregular - triangular flap 4cm x 4cm Anesthesia: Local, 1.0% Length, Depth and Shape: triangular flap 4cm x 4cm Betadine Prep?: Yes Irrigated w/ Saline (ccs): 100 Laceration/Wound Explored: clean, no foreign body removed Closure: Multilayer - 4-0 vicryl, #5 sutures. #17 luh , Luh #__ - 17 Debridement: none Suture Type: Vicryl - 4-0 #5 internal Number of Sutures: 5 - then 17 luh external Layer Closure?: Yes Sterile Dressing Applied?: Yes Diagnostics - Vital Signs Vital Signs Temp Pulse Resp BP Pulse Ox 10/28/17 16:24 98.3 F 80 19 174/100 98 - Laboratory Result Diagrams: 10/28/17 17:39 10/28/17 17:39 Lab Statement: Any lab studies that have been ordered have been reviewed, and results considered in the medical decision making process. - CT Brain CT CT Interpretation Completed By: Radiologist - Impression: No acute intracranial pathology. ED Physician reviewed this report. Re-Evaluation - Re-Evaluation First Eval Re-Evaluation Time: 17:35 Change: Improved Comment: ARAMBULA better. Awaiting CT result. Second Eval Re-Evaluation Time: 20:15 Change: Improved Comment: wound sutured. Pt tolerated well. Head Injury Course/Dx Course Of Treatment: Pt is 51 y/o BIBA c/o head injury and scalp laceration. Brain CT showed no acute intracranial pathology. Scalp laceration was repaired in 2 layers with 5 vicryl sutures and 17 luh via sterile technique. Tetanus was updated with tdap as it was unrecalled (?7 years per pt). Wound was irrigated prior to suturing. Time out procedure was implemented prior to suturing. Pt and instructed re wound care, and advised to have definite wound check in 2 days, then staple removal in 10-14 days. Pt given Rx for 3 day course of hydrocodone, advised re opiate addiction and not to drive or operate machinery within 6 hrs of ingestion. - Diagnoses Differential Diagnosis/HQI/PQRI: Cerebral Contusion, Concussion Without LOC, Hematoma, Intracranial Bleed, Laceration, Skull Fracture Provider Diagnoses: Laceration of scalp, Head injury without skull fracture, Elevated BP without diagnosis of hypertension, Elevated liver function tests Discharge - Sign-Out/Discharge Documenting (check all that apply): Patient Departure - home - Discharge Plan Condition: Stable Disposition: HOME Prescriptions: HYDROcodone/ACETAMIN 5-325 MG* [[place] 5-325 TAB*] 1 tab PO Q4H PRN #10 tab MDD 6 PRN Reason: Severe Pain Patient Education Materials: Hydrocodone/Acetaminophen (By mouth), Head Injury (ED), Staple Care (ED) Forms: *Work Release Referrals: Easton Espinoza MD [Primary Care Provider] - 2 Days Additional Instructions: The CT of your brain did not show any skull fracture or brain abnormality. Your lab tests showed slightly elevated liver function abnormalities, but no bleeding abnormalities and no anemia. Dr. Bobo placed 5 Vicryl (dissolvable) sutures in your wound, and then [address] Bobo wants you to keep the bandage in place, and keep the wound dry (no shower, no pool) until Dr. Espinoza or a medical professional checks your wound on 10/30/17, or sooner if needed. Your blood pressure was elevated after the injury. Be sure to have Dr. Espinoza check your blood pressure on the next visit. The luh require a special tool to remove them, and they should be removed in 10-14 days. You were given one hydrocodone/acetaminophen tablet at 8:15pm. You may have 1 or 2 tabs again anytime after 12:15am, and then every four hours as needed for severe pain. Dr. Bobo dispensed 6 tablets of hydrocodone/acetaminophen 5/ 325mg for home use, until you fill your prescription at [facility]. Return to the ER if you have any new or worsening symptoms. - Billing Disposition and Condition Condition: STABLE Disposition: Home - Attestation Statements Document Initiated by Blaine: Yes Documenting Scribe: Linda Cali Provider For Whom Blaine is Documenting (Include Credential): Heather Bobo MD Scribe Attestation: Linda Norman, scribed for Heather Bobo MD on 10/30/17 at 2258. Scribe Documentation Reviewed: Yes Provider Attestation: The documentation as recorded by the Linda lee accurately reflects the service I personally performed and the decisions made by , Heather Bobo MD
--- NOTE | 2017-10-28 17:44 | RAD ---
HISTORY: scalp lac, top of head COMPARISONS: None TECHNIQUE: Multiple contiguous axial CT scans were obtained of the head without intravenous contrast. FINDINGS: HEMORRHAGE/INFARCT: There is no hemorrhage or acute infarct. MASSES/SHIFT: There is no mass or shift. EXTRA-AXIAL SPACES: There are no extra-axial fluid collections. SULCI AND VENTRICLES: The sulci and ventricles are normal in size and position for the patient's stated age. CEREBRUM: There are no focal parenchymal abnormalities. BRAINSTEM: There are no focal parenchymal abnormalities. CEREBELLUM: There are no focal parenchymal abnormalities. VESSELS: The vessels are grossly normal. PARANASAL SINUSES: There is a mucous retention cyst of the left maxillary sinus. ORBITS: The orbits are unremarkable. BONES AND SOFT TISSUE: No bone or soft tissue abnormalities are noted. OTHER: None IMPRESSION: NO ACUTE INTRACRANIAL PATHOLOGY.
[2017-10-28 17:50] LABS: ABS Basophils 0.1 10^3/ul (0-0.2); ABS Eosinophils 0.2 10^3/ul (0-0.6); ABS Lymphocytes 1.7 10^3/ul (1.0-4.8); ABS Monocytes 0.6 10^3/ul (0-0.8); ABS Neutrophils 7.2 10^3/ul (1.5-7.7); ABS Nucleated RBC 0 10^3/ul; Eosinophil % 1.6 % (0-6); Hematocrit 43 % (42-52); Hemoglobin 14.6 g/dl (14.0-18.0); Lymphocyte % 17.7 % (25-47); Mean Corpuscular HGB Conc 34 g/dl (31-36); Mean Corpuscular Hemoglobin 31 pg (27-31); Mean Corpuscular Volume 91 fL (80-94); Mean Platelet Volume 7.7 um3 (7.4-10.4); Nucleated Red Blood Cells % 0.1; Platelet Count 255 10^3/ul (150-450); Red Blood Count 4.69 10^6/ul (4.00-5.40); Red Cell Distribution Width 13 % (10.5-15); White Blood Count 9.8 10^3/ul (3.5-10.8)
[2017-10-28 17:53] LABS: INR 0.99 (0.77-1.02)
[2017-10-28 18:05] LABS: EGFR Non-African American 82.9 (>60)
[2017-10-28] MEDS ORDERED: HYDROcodone/ACETAMIN 5-325 MG* 1 TAB PO ONE (19:58)
[2017-10-28] MEDS ORDERED: Lidocaine 1%* 5 ML VIAL INJ ONE (20:16)
[2017-10-28] MEDS ORDERED: Lidocaine 1%* 5 ML VIAL ONE (20:18)
[2017-10-28 21:14] VITALS: BP 146/97
== END 2017-10-28 21:33 | disposition home or self-care (01) ==
LOC: ED 16:22
DX: S01.01XA Laceration without foreign body of scalp, initial encounter (principal); K21.9 Gastro-esophageal reflux disease without esophagitis; Z79.82 Long term (current) use of aspirin; Z86.718 Personal history of other venous thrombosis and embolism; E78.00 Pure hypercholesterolemia, unspecified; Z87.891 Personal history of nicotine dependence; S09.90XA Unspecified injury of head, initial encounter; R03.0 Elevated blood-pressure reading, without diagnosis of hypertension; R79.89 Other specified abnormal findings of blood chemistry
CPT/HCPCS: 12002; 12032; 36415; 70450; 80053; 83605; 83735; 85025; 85610; 86140; 90471; 90715; 99283; A9270-GY

== ENCOUNTER 2018-03-03 09:14 | Emergency (ER) | payer OTHER ==
[2018-03-03 09:29] VITALS: BP 158/101
--- NOTE | 2018-03-03 09:40 | UC ---
Respiratory Complaint HPI - HPI Summary HPI Summary: 52 yo male presents with fatigue, body aches, sinus pain/pressure/congestion, and left ear pain. Symptoms started with fatigue and body aches 3-4 days ago. Over the last 2 days his sinus symptoms and ear pain began and have increased in discomfort since. He tells me that he has a history of a spleen injury and, due to this, tends to get sick quickly. Has felt feverish/warm, but has not taken his temperature. Denies sore throat, SOB, chest pain, abdominal pain, n/v , diarrhea, dysuria. He also has a red area to his anterior right thigh first noticed 3 days ago and getting progressively worse. Mildly itchy and painful. - History of Current Complaint Chief Complaint: UCGeneralIllness Stated Complaint: SINUS AND EAR COMPLAINT Time Seen by Provider: 03/03/18 09:40 Hx Obtained From: Patient Onset/Duration: Gradual Onset Severity Initially: Moderate Severity Currently: Moderate Pain Intensity: 7 Pain Scale Used: 0-10 Numeric - Allergies/Home Medications Allergies/Adverse Reactions: Allergies Allergy/AdvReac Type Severity Reaction Status Date / Time No Known Allergies Allergy Verified 03/03/18 09:29 PMH/Surg Hx/FS Hx/Imm Hx - Additional Past Medical History Additional PMH: Spleen injury years ago Endocrine History: Dyslipidemia Cardiovascular History: Hypertension GI/ History: Gastroesophageal Reflux - Surgical History Surgical History: Yes Surgery Procedure, Year, and Place: appendectomy 2013[facility] [place] - Family History Known Family History: Positive: Cardiac Disease, Hypertension, Diabetes - Social History Occupation: Employed Full-time Alcohol Use: Weekly Alcohol Amount: reports 4 beers or wine per week Substance Use Type: None Smoking Status (MU): Former Smoker Type: Cigarettes Amount Used/How Often: 1 ppd for 28 yrs Have You Smoked in the Last Year: No When Did the Patient Quit Smoking/Using Tobacco: 2009 Household Exposure Type: Cigarettes - Immunization History Most Recent Influenza Vaccination: FALL 2015 Most Recent Tetanus Shot: 2008 Most Recent Pneumonia Vaccination: 2010 Review of Systems All Other Systems Reviewed And Are Negative: Yes Constitutional: Positive: Fatigue, Other - Body aches Skin: Positive: Rash Eyes: Positive: Negative ENT: Positive: Ear Ache, Nasal Discharge, Sinus Congestion, Sinus Pain/ Tenderness Respiratory: Positive: Negative Cardiovascular: Positive: Negative Gastrointestinal: Positive: Negative Neurovascular: Positive: Negative Neurological: Positive: Negative Psychological: Positive: Negative Physical Exam - Summary Physical Exam Summary: GENERAL: NAD. WDWN. No pain distress. SKIN: RIGHT anterior thigh with ~10.0cm area of dry skin and mild erythema with excoriations. No warmth, active drainage, or streaking. HEENT: Head: AT/NC Eyes: EOM intact. Conjunctiva clear without inflammation or discharge. Ears: Hearing grossly normal. LEFT TM with mild erythema and bulging. No canal edema or drainage. RIGHT TM intact and WNL. Nose: Nasal mucosa mildly swollen and erythematous with yellow discharge. TTP maxillary and frontal sinus. Positive post nasal drip Throat: Posterior oropharynx without exudates, erythema, or tonsillar enlargement. NECK: Supple. Nontender. No lymphadenopathy. CHEST: CTAB. No r/r/w. No accessory muscle use. Breathing comfortably and in no distress. CV: RRR. Without m/r/g. Pulses intact. NEURO: Alert. PSYCH: Age appropriate behavior. Triage Information Reviewed: Yes Vital Signs: Initial Vital Signs Temp 97 F 03/03/18 09:25 Pulse 73 03/03/18 09:25 Resp 18 03/03/18 09:25 BP 158/101 03/03/18 09:25 Pulse Ox 100 03/03/18 09:25 Vital Signs Reviewed: Yes UC Diagnostic Evaluation - Laboratory O2 Sat by Pulse Oximetry: 100 Respiratory Course/Dx - Course Course Of Treatment: Sinusitis. Left otitis media. Suspect eczema to right anterior thigh. Will rx for augmentin and kenalog cream. Advised to rest and drink fluids - f/u if symptoms persist or worsen. - Differential Dx/Diagnosis Provider Diagnosis: Sinusitis, Left otitis media, Eczema, dyshidrotic Discharge - Sign-Out/Discharge Documenting (check all that apply): Patient Departure All imaging exams completed and their final reports reviewed: No Studies - Discharge Plan Condition: Stable Disposition: HOME Prescriptions: Amoxicillin/Clavulanate TAB* [Augmentin TAB 875*] 875 mg PO BID #20 tab Triamcinolone 0.1% CREAM (NF) [Kenalog 0.1% Cream (NF)] 1 applic TOPICAL BID #1 tube Patient Education Materials: Cellulitis (ED), Ear Infection (ED) Referrals: Easton Espinoza MD [Primary Care Provider] - Additional Instructions: If you develop a fever, shortness of breath, chest pain, new or worsening symptoms - please call your PCP or go to the ED. Your blood pressure was high at todays visit. Please see your primary provider within 4 weeks for recheck and re-evaluation. - Billing Disposition and Condition Condition: STABLE Disposition: Home - Attestation Statements Provider Attestation: Per institutional requirements, I have reviewed the chart, however, I was not consulted specifically or made aware of this patient by the midlevel provider. I did not personally evaluate, interact with , or disposition this patient.
== END 2018-03-03 09:56 | disposition home or self-care (01) ==
LOC: UCEAST 09:14
DX: J32.9 Chronic sinusitis, unspecified (principal); H66.92 Otitis media, unspecified, left ear; L30.1 Dyshidrosis [pompholyx]; I10 Essential (primary) hypertension; Z87.891 Personal history of nicotine dependence; L30.9 Dermatitis, unspecified
CPT/HCPCS: 99212; G0463

== ENCOUNTER 2018-05-02 15:40 | Emergency (ER) | payer OTHER ==
--- OUTSIDE RECORDS SUMMARY | 2018-05-02 15:44 | XMS REPORT | Continuity of Care Document ---
:1965 External Reference #:[id number] Author Name Karenkate Xochitl Care Team Providers Name Role Phone Easton Espinoza MD Primary Care Physician Unavailable Payers Type Date Identification Numbers Payment Provider Subscriber Policy [facility]: [id number] [facility] Number: [id number] Group Name: [employer] [id number] PayID: [id number] Advance Directives Description No Information Available Problems Date Description Provider Status Onset: 04/03/2014 Dyssomnia Kailey Miller MD Active Onset: 04/03/2014 Morbid obesity Kailey Miller MD Active Onset: 06/05/2014 Obstructive sleep apnea syndrome Kailey Miller MD Active Onset: 06/05/2014 Obesity Kailey Miller MD Active Onset: 06/15/2016 Closed fracture of lateral malleolus Zara Epperson MD Active Onset: 08/03/2016 Open fracture of lateral malleolus Zara Epperson MD Active Onset: 08/03/2016 Edema Zara Epperson MD Active Onset: Mild asthma Active Family History Date Family Member(s) Problem(s) Comments General non contributory General Diabetes General Heart Disease General Stroke Father Lung Cancer Father Mother CHF,Dementia Mother alive and well, lives w/son Siblings None Social History Type Date Description Comments Sex Unknown Lives With Occupation Currently 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 Tobacco Use Start: Unknown Quit 2009 Smoked between 1/2 and 1 ppd for 30 years ETOH Use Rarely consumes alcohol Tobacco Use Start: Unknown Patient is a former End: Unknown smoker Recreational Drug Use Never Used Drugs Smoking Status Reviewed: 04/10/18 Patient is a former smoker Exercise Type/Frequency Exercises sporadically Allergies, Adverse Reactions, Alerts Description No Known Drug Allergies Medications Medication Date Status Form Strength Qnty SIG Indications Ordering Provider Compression 07/20/ Active Misc 1units knee high R60.0 Zara Stockings 2016 compression MD Zhou stockings 20-30 mmhg Simvastatin 04/02/ Active Tablets 20mg 1 by mouth Unknown 2014 every day Lasix / Active Tablets 20mg 1 by mouth Unknown 0000 every day Albuterol / Active Powder 1-2 puffs Unknown Sulfate 0000 every 4 hours as needed sob Bactrim DS 08/03/ Hx Tablets 800-160mg 14tabs take 1 tab S82.65xB Zara 2016 - twice a day MD Zhou 08/11/ for 10 days 2017 Bactrim DS 07/20/ Hx Tablets 800-160mg 20tabs take 1 by Zara 2016 - mouth twice MD Zhou 08/03/ daily x 10 2016 days Immunizations CPT Code Status Date Vaccine Lot # [id number] Given 12/27/2015 Influenza Virus Vaccine, Quadrivalent, Split, Preservative Free Vital Signs Date Vital Result Comment 04/10/2018 11:05am Height 73 inches 6'1" Weight 306.12 lb Heart Rate 64 /min BP Systolic Sitting 154 mmHg Lue large cuff BP Diastolic Sitting 100 mmHg Lue large cuff Respiratory Rate 20 /min O2 % BldC Oximetry 97 % On Ra BMI (Body Mass Index) 40.4 kg/m2 01/31/2017 2:14pm Height 73 inches 6'1" Weight 309.38 lb with shoes Heart Rate 54 /min BP Systolic Sitting 140 mmHg Lue large cuff BP Diastolic Sitting 90 mmHg Lue large cuff Respiratory Rate 16 /min O2 % BldC Oximetry 98 % On Ra BMI (Body Mass Index) 40.8 kg/m2 08/29/2016 3:32pm Height 73 inches 6'1" Weight 313.00 lb BP Systolic 130 mmHg BP Diastolic 84 mmHg Body Temperature 97.4 F Pain Level 1 BMI (Body Mass Index) 41.3 kg/m2 08/03/2016 8:13am Height 73 inches 6'1" Weight 313.00 lb Heart Rate 76 /min BP Systolic 132 mmHg BP Diastolic 90 mmHg Body Temperature 97.2 F Pain Level 1 BMI (Body Mass Index) 41.3 kg/m2 07/20/2016 8:17am Height 73 inches 6'1" Weight 313.00 lb Heart Rate 76 /min BP Systolic 116 mmHg BP Diastolic 74 mmHg Respiratory Rate 20 /min Body Temperature 97.2 F Pain Level 0 BMI (Body Mass Index) 41.3 kg/m2 06/29/2016 3:23pm Height 73 inches 6'1" Weight 313.00 lb Heart Rate 67 /min BP Systolic 139 mmHg BP Diastolic 92 mmHg Pain Level 4 BMI (Body Mass Index) 41.3 kg/m2 06/15/2016 2:58pm Height 73 inches 6'1" Weight 313.00 lb Respiratory Rate 16 /min Pain Level 2 BMI (Body Mass Index) 41.3 kg/m2 06/01/2016 9:31am Height 73 inches 6'1" Weight 313.00 lb Heart Rate 62 /min BP Systolic 152 mmHg BP Diastolic 96 mmHg Body Temperature 98.1 F Pain Level 10 BMI (Body Mass Index) 41.3 kg/m2 01/03/2016 8:15am Height 73 inches 6'1" Weight 308.25 lb Heart Rate 64 /min BP Systolic Sitting 140 mmHg BP Diastolic Sitting 88 mmHg Respiratory Rate 16 /min O2 % BldC Oximetry 96 % BMI (Body Mass Index) 40.7 kg/m2 12/25/2014 8:02am Height 73 inches 6'1" Weight 298.00 lb Heart Rate 71 /min BP Systolic Sitting 142 mmHg BP Diastolic Sitting 82 mmHg Respiratory Rate 22 /min O2 % BldC Oximetry 98 % BMI (Body Mass Index) 39.3 kg/m2 09/22/2014 8:04am Height 73 inches 6'1" Weight 303.00 lb Heart Rate 67 /min BP Systolic 142 mmHg BP Diastolic 78 mmHg Respiratory Rate 14 /min O2 % BldC Oximetry 98 % BMI (Body Mass Index) 40.0 kg/m2 06/05/2014 3:51pm Heart Rate 73 /min BP Systolic Sitting 144 mmHg BP Diastolic Sitting 82 mmHg Respiratory Rate 20 /min O2 % BldC Oximetry 98 % 04/03/2014 8:06am Height 72 inches 6'0" Weight 290.00 lb with shoes on Heart Rate 71 /min BP Systolic Sitting 142 mmHg BP Diastolic Sitting 80 mmHg Respiratory Rate 20 /min Body Temperature 97.9 F O2 % BldC Oximetry 98 % BMI (Body Mass Index) 39.3 kg/m2 Neck Circumference in inches 19 Results Description No Information Available Procedures Date Code Description Status 06/01/2016 42626 CLSD TX Distal Fib FX (Lateral Malleolus) w/o manipulation Completed 05/05/2014 15560 Polysomnography Sleep Staging 4+ Parameters W/Cpap Completed Encounters Type Date Location Provider Dx Diagnosis Office Visit 01/31/2017 [facility] Mili Laughlin, G47.33 Obstructive sleep 2:15p [facility], STRUCTURAL ENGINEERING TECHNICIAN-RADHIKA apnea (adult) [facility] (pediatric) E66.9 Obesity, unspecified Z68.41 Body mass index (BMI) 40.0-44.9, adult Office Visit 01/03/2016 [facility] Mili G47.33 Obstructive sleep 8:15a [facility] 12/25/2014 Pul[facility]ology [facility] Mili G47.33 Obstructive sleep 8:00a [facility] Laughlin RN, apnea (adult) [facility] STRUCTURAL ENGINEERING TECHNICIAN-BC (pediatric) Office Visit 09/22/2014 Pulmonology And Mili 327.23 Obstructive Sleep 8:00a [facility] Laughlin RN, [facility] 06/05/2014 Pulmonology And Kailey Miller, 327.23 Obstructive Sleep 3:45p [facility] Apnea Adult & [facility] Pediatric 278.00 Obesity Unspec Office Visit 04/03/2014 8:15a Pulmonology And Kailey 780.59 Sleep Disturbances [facility] MD Angela Other [facility] 278.01 Obesity Morbid Plan of Treatment Future Appointment(s):04/11/2019 8:15 am - Mili Laughlin DNP, RN, STRUCTURAL ENGINEERING TECHNICIAN-BC at [facility]04/10/2018 - Mili Laughlin DNP, RN, STRUCTURAL ENGINEERING TECHNICIAN- BCG47.33 Obstructive sleep apnea (adult) (pediatric)Comments:Sleep Apnea - NPSG 05/05/14 Severe PAULO, AHI 74/hour, Tin oxygen 86%, Wt 294, BMI 38.8 on CPAP 11 cm AHI 1/hourFollow up:1 yearRecommendations:Continue PAP device, Benefitting and compliant with treatment. Cleaning Wipe off mask daily (baby wipe-no scent, or warm water) Clean mask, tubing, filter, and water chamber weekly in mild no scent dish soap and water. Hang to dry. If you have any sleepiness while driving you MUST avoid operating a vehicle or machinery. If you have difficulty with your equipment, or need to replace your mask or hoses, please contact your homecare agency. A weight change of 20 pounds or more may have an effect onyour equipment; if you are experiencing problems please call for an appointment. If you have any further questions, please call the [facility] at [phone] Nasal congestionRecommendations:left side swelling, recommend seeing ENT, defer to primary care. Recommend trying Neti pt rinse daily using distilled water and Alkalol salt [id number] Body mass index (BMI) 40.0-44.9, adultRecommendations:recommend weight loss
[2018-05-02 15:51] VITALS: BP 167/100
--- NOTE | 2018-05-02 15:53 | UC ---
Ear Complaint HPI - HPI Summary HPI Summary: 52 yo male presents with right ear pain. He tells me that for the last 2 weeks he has been having sinus pain/pressure/congestion. He went to see his PCP about a week ago and was given augmentin for this. Over the last 2-3 days he has developed right ear pain with clear/bloody drainage. Sticking a q-tip in the ear makes it hurt more. He denies fever or chills. - History of Current Complaint Chief Complaint: UCEar Stated Complaint: EAR PAIN Time Seen by Provider: 05/02/18 15:52 Hx Obtained From: Patient Onset/Duration: Gradual Onset Severity Initially: Moderate Severity Currently: Severe Pain Intensity: 8 Pain Scale Used: 0-10 Numeric - Allergies/Home Medications Allergies/Adverse Reactions: Allergies Allergy/AdvReac Type Severity Reaction Status Date / Time No Known Allergies Allergy Verified 05/02/18 15:51 Home Medications: Home Medications Naproxen Sodium [Aleve] 440 mg PO BID 05/02/18 [History Confirmed 05/02/18] Triamcinolone 0.1% CREAM (NF) [Kenalog 0.1% Cream (NF)] 1 applic TOPICAL BID PRN 05/02/18 [History Confirmed 05/02/18] PMH/Surg Hx/FS Hx/Imm Hx Endocrine History: Dyslipidemia Cardiovascular History: Hypertension Respiratory History: Asthma GI/ History: Gastroesophageal Reflux - Surgical History Surgical History: Yes Surgery Procedure, Year, and Place[place] [place] History Known Family History: Positive: Cardiac Disease, Hypertension, Diabetes - Social History Occupation: Employed Full-time Lives: With Family Alcohol Use: Weekly Alcohol Amount: reports 4 beers or wine per week Substance Use Type: None Smoking Status (MU): Former Smoker Type: Cigarettes Amount Used/How Often: 1 ppd for 28 yrs Have You Smoked in the Last Year: No When Did the Patient Quit Smoking/Using Tobacco: 2009 Household Exposure Type: Cigarettes - Immunization History Most Recent Influenza Vaccination: FALL 2015 Most Recent Tetanus Shot: 2008 Most Recent Pneumonia Vaccination: 2010 Review of Systems All Other Systems Reviewed And Are Negative: Yes Constitutional: Positive: Negative Skin: Positive: Negative Eyes: Positive: Negative ENT: Positive: Ear Ache Respiratory: Positive: Negative Cardiovascular: Positive: Negative Gastrointestinal: Positive: Negative Neurovascular: Positive: Negative Neurological: Positive: Negative Psychological: Positive: Negative Physical Exam - Summary Physical Exam Summary: GENERAL: NAD. WDWN. No pain distress. SKIN: No rashes, sores, lesions, or open wounds. HEENT: Head: AT/NC Eyes: EOM intact. Conjunctiva clear without inflammation or discharge. Ears: Hearing grossly normal. RIGHT EAR: Moderate canal edema and white purulent discharge. Mild TTP with auricle and tragus manipulation. LEFT EAR: TM intact and WNL. Nose: Nasal mucosa pink and moist. NTTP maxillary and frontal sinus. Throat: Posterior oropharynx without exudates, erythema, or tonsillar enlargement. Uvula midline. NECK: Supple. Nontender. No lymphadenopathy. CHEST: CTAB. No r/r/w. No accessory muscle use. Breathing comfortably and in no distress. CV: RRR. Without m/r/g. Pulses intact. NEURO: Alert. PSYCH: Age appropriate behavior. Triage Information Reviewed: Yes Vital Signs: Initial Vital Signs Temp 98.1 F 05/02/18 15:47 Pulse 59 05/02/18 15:47 Resp 16 05/02/18 15:47 BP 167/100 05/02/18 15:47 Pulse Ox 100 05/02/18 15:47 Vital Signs Reviewed: Yes Ear Complaint Course/Dx - Course Course Of Treatment: Right otitis externa - Differential Dx/Diagnosis Provider Diagnosis: Right otitis externa Discharge - Sign-Out/Discharge Documenting (check all that apply): Patient Departure All imaging exams completed and their final reports reviewed: No Studies - Discharge Plan Condition: Stable Disposition: HOME Prescriptions: Ofloxacin 0.3% (Ear Drop)* [Floxin 0.3% OTIC.NASREEN (Ear Drop)] 5 drop RIGHT EAR BID #1 btl Patient Education Materials: Otitis Externa (ED) Referrals: Easton Espinoza MD [Primary Care Provider] - Additional Instructions: If you develop a fever, shortness of breath, chest pain, new or worsening symptoms - please call your PCP or go to the ED. Your blood pressure was high at todays visit. Please see your primary provider within 4 weeks for recheck and re-evaluation. - Billing Disposition and Condition Condition: STABLE Disposition: Home - Attestation Statements Provider Attestation: I was available for consult. This patient was seen by the MARIBEL. The patient was not presented to, seen by, or examined by me. -Sammy
== END 2018-05-02 16:15 | disposition home or self-care (01) ==
LOC: UCEAST 15:40
DX: H66.91 Otitis media, unspecified, right ear (principal); I10 Essential (primary) hypertension; J45.909 Unspecified asthma, uncomplicated; Z79.899 Other long term (current) drug therapy; Z87.891 Personal history of nicotine dependence
CPT/HCPCS: 99212; G0463

== ENCOUNTER 2018-08-19 08:23 | Emergency (ER) | payer OTHER ==
[2018-08-19] MEDS ORDERED: Ketorolac INJ* 30 MG/ML 1 ML VIAL IV PUSH ONE (08:49)
--- NOTE | 2018-08-19 08:50 | ED ---
HPI Chest Pain - HPI Summary HPI Summary: Patient is a 52-year-old male who presents emergency department complaining of right-sided rib pain that started just prior to arrival. Patient states he was lying on his abdomen using a kunal under a car when he developed acute right- sided pain to his ribs. Pain is worse with movement and inspiration. Patient also notes a pressure sensation to the left side of his chest as well which he contributes to anxiety. He has a past medical history of chronic sinusitis, obesity, hypertension, hyperlipidemia. Patient notes family history of coronary artery disease. Symptoms are moderate in severity. - History of Current Complaint Chief Complaint: EDChestWallPain Time Seen by Provider: 08/19/18 08:36 Hx Obtained From: Patient Pain Intensity: 4 - Allergy/Home Medications Allergies/Adverse Reactions: Allergies Allergy/AdvReac Type Severity Reaction Status Date / Time No Known Allergies Allergy Verified 05/02/18 15:51 Home Medications: Home Medications Candesartan Cilexetil 1 tab PO DAILY 08/19/18 [History Confirmed 08/19/18] PMH/Surg Hx/FS Hx/Imm Hx Previously Healthy: Yes Endocrine/Hematology History: Denies: Hx Diabetes, Hx Thyroid Disease Cardiovascular History: Reports: Hx Deep Vein Thrombosis, Hx Hypercholesterolemia, Other Cardiovascular Problems/Disorders - hyperlipidemia Denies: Hx Hypertension Respiratory History: Reports: Hx Asthma, Hx Sleep Apnea - CPAP Denies: Hx Chronic Obstructive Pulmonary Disease (COPD) GI History: Reports: Hx Gastroesophageal Reflux Disease - prn otc med Denies: Hx Ulcer History: Reports: Hx Renal Disease - RT HYDRONEPHROSIS, Other Problems/ Disorders - right hydronephrosis Psychiatric History: Denies: Hx Anxiety - Surgical History Surgery Procedure, Year, and Place: appendectomy 2014 [place] [place] Anesthesia Reactions: No Infectious Disease History: No Infectious Disease History: Denies: Hx Hepatitis, Hx Human Immunodeficiency Virus (HIV), History Other Infectious Disease, Traveled Outside the [place] in Last 30 Days - Family History Known Family History: Positive: Cardiac Disease, Hypertension, Diabetes - Social History Occupation: Employed Full-time Lives: With Family Alcohol Use: Weekly Alcohol Amount: reports 4 beers or wine per week Hx Substance Use: No Substance Use Type: Reports: None Smoking Status (MU): Former Smoker Type: Cigarettes Amount Used/How Often: 1 ppd for 28 yrs Have You Smoked in the Last Year: No Review of Systems Constitutional: Negative Negative: Fever, Chills Positive: Chest Pain Respiratory: Negative Negative: Shortness Of Breath, Cough Gastrointestinal: Negative Negative: Abdominal Pain, Vomiting, Nausea Positive: Other - right sided rib pain Skin: Negative Neurological: Negative All Other Systems Reviewed And Are Negative: Yes Physical Exam Triage Information Reviewed: Yes Vital Signs On Initial Exam: Initial Vitals Temp Pulse Resp BP Pulse Ox 97.7 F 64 20 154/106 98 08/19/18 08:26 08/19/18 08:26 08/19/18 08:26 08/19/18 08:26 08/19/18 08:26 Vital Signs Reviewed: Yes Appearance: Positive: Pain Distress - Pt. sitting up in bed, appears uncomfortable but nontoxic. present. Obese. Skin: Positive: Warm, Dry Head/Face: Positive: Normal Head/Face Inspection Eyes: Positive: Normal, EOMI, ANDRES Neck: Positive: Supple Respiratory/Lung Sounds: Positive: Clear to Auscultation, Breath Sounds Present Cardiovascular: Positive: Normal, RRR Abdomen Description: Positive: Nontender, Soft Musculoskeletal: Positive: Other - Pain on palpation to anterior left lower rib cage. Neurological: Positive: Normal, CN Intact II-III Psychiatric: Positive: Affect/Mood Appropriate Diagnostics - Vital Signs Vital Signs Temp Pulse Resp BP Pulse Ox 08/19/18 08:26 97.7 F 64 20 154/106 98 - Laboratory Result Diagrams: 08/19/18 08:56 08/19/18 08:56 Lab Statement: Any lab studies that have been ordered have been reviewed, and results considered in the medical decision making process. Chest Pain Course/Dx - Course Course Of Treatment: Pt. presenting right right low rib pain after an injury. VS stable. Pt. given IV toradol for pain. He also notes mild left sided chest discomfort. Cardiac workup ordered and xr. ECG done at 0933 shows a sinus bradycardia of 53bpm, normal axis, no ST elevation or depression. 1040: Pt. re- examined. He is resting more comfortably but still c/o pain. Labs and xrays unremarkable. Pt. re-examined while lying. On abd. exam pt. has marked tenderness to the RUQ with guarding. Will order GB U/S to evaluate GB and liver. Labs are unremarkable including negative troponin x 2. GB U/S per radiology: IMPRESSION: Hepatic steatosis with no evidence of ascites. No evidence of cholelithiasis. or biliary duct dilatation is noted. The study is limited by patient's body habitus. I asked Dr. Yin to evaluate pt. given his significant pain and unclear etiology. Dr. Yin examined pt. and recommends ct scan abd/pelvis for further evaluation. Pt. given a dose of lortab. CT scan negative for acute findings. On re-exam pt. resting comfortably. Feeling a bit better, still has pain with movement. Suspect muscular etiology. Pt. comfortable with dc. REPORTING COORDINATOR reviewed and no red flags noted. Lortab and naproxen rx. Advised warm compresses. Work excuse given. Pt. to f.u with PCP in 2-3 days. Will return if sxs change or worsen. Pt. and understand and agree with plan. - Diagnoses Provider Diagnoses: Rib contusion, Muscle strain Discharge - Sign-Out/Discharge Documenting (check all that apply): Patient Departure Patient Received Moderate/Deep Sedation with Procedure: No - Discharge Plan Condition: Improved Disposition: HOME Prescriptions: Hydrocodone/Acetaminophen [Hydrocodone-Acetamin 5-325 mg] 1 each PO Q6H #12 tablet MDD 4 Naproxen [Naproxen 500 mg tab] 500 mg PO BID #20 tablet Patient Education Materials: Muscle Strain (ED), Rib Contusion (ED) Forms: *Work Release Referrals: Easton Espinoza MD [Primary Care Provider] - As Soon As Possible Additional Instructions: Schedule follow up appointment with PCP in 2-3 days Pain medication as directed Apply warm compresses Return to ER if symptoms change or worsen - Billing Disposition and Condition Condition: IMPROVED Disposition: Home
[2018-08-19 09:09] LABS: ABS Eosinophils 0.2 10^3/ul (0-0.6); ABS Lymphocytes 2.4 10^3/ul (1.0-4.8); ABS Monocytes 0.8 10^3/ul (0-0.8); ABS Neutrophils 6.8 10^3/ul (1.5-7.7); Eosinophil % 1.9 %; Hematocrit 42 % (42-52); Hemoglobin 14.5 g/dL (14.0-18.0); Lymphocyte % 23.2 %; Mean Corpuscular HGB Conc 34 g/dL (31-36); Mean Corpuscular Hemoglobin 31 pg (27-31); Mean Corpuscular Volume 91 fL (80-94); Mean Platelet Volume 7.4 fL (7.4-10.4); Nucleated Red Blood Cells % 0.1; Platelet Count 307 10^3/uL (150-450); Red Blood Count 4.68 10^6 /uL (4.18-5.48); Red Cell Distribution Width 13 % (10-15); White Blood Count 10.2 10^3/uL (3.5-10.8)
[2018-08-19 09:33] LABS: Albumin/Globulin Ratio 1.5 (1-3); BUN/Creatinine Ratio 18.8 (8-20); Calcium 8.9 mg/dL (8.6-10.3); EGFR African American 98.8 (>60); EGFR Non-African American 81.6 (>60); Globulin 2.6 g/dL (2-4); Potassium 3.9 mmol/L (3.5-5.0); Total Bilirubin 0.7 mg/dL (0.2-1.0); Total Protein 6.6 g/dL (6.4-8.9)
[2018-08-19] MEDS ORDERED: Lidocaine 2% VISCOUS* 15 ML UDC PO ONE (11:40)
[2018-08-19] MEDS ORDERED: Al Hydrox/Mg Hydrox/Simet LIQ* 30 ML UDC PO ONE (11:40)
--- NOTE | 2018-08-19 14:47 | ED ---
Progress - Progress Note Progress Note: I supervised ISIDORO Abraham, in the care of the patient and did a history and physical exam. He presents with exquisite RUQ and tenth rib tenderness after laying on his belly while sliding a kunal under a car. He denies nausea, vomiting , and SOB. Has hx of cracked ribs. Course/Dx - Course Course Of Treatment: ECG done at 0933 shows a sinus bradycardia of 53bpm, normal axis, no ST elevation or depression. 1040: Pt. re-examined. He is resting more comfortably but still c/o pain. Labs and xrays unremarkable. Pt. re -examined while lying. On abd. exam pt. has marked tenderness to the RUQ with guarding. Will order GB U/S to evaluate GB and liver. - Diagnoses Provider Diagnoses: Rib contusion, Muscle strain Discharge - Discharge Plan Condition: Improved Disposition: HOME Prescriptions: Hydrocodone/Acetaminophen [Hydrocodone-Acetamin 5-325 mg] 1 each PO Q6H #12 tablet MDD 4 Naproxen [Naproxen 500 mg tab] 500 mg PO BID #20 tablet Patient Education Materials: Muscle Strain (ED), Rib Contusion (ED) Forms: *Work Release Referrals: Easton Espinoza MD [Primary Care Provider] - As Soon As Possible Additional Instructions: Schedule follow up appointment with PCP in 2-3 days Pain medication as directed Apply warm compresses Return to ER if symptoms change or worsen - Billing Disposition and Condition Condition: IMPROVED Disposition: Home - Attestation Statements Document Initiated by Scribe: Yes Documenting Scribe: Debo Avelar Provider For Whom Blaine is Documenting (Include Credential): Dr. Chad Yin MD Scribe Attestation: Debo Norman scribed for Dr. Chad Yin MD on 08/19/18 at 1946. Status of Scribe Document: Ready
[2018-08-19] MEDS ORDERED: HYDROcodone/ACETAMIN 5-325 MG* 1 TAB PO ONE (14:56)
[2018-08-19] MEDS ORDERED: Iohexol 300* (CONTRAST) 10 ML SDV IV ONE (15:02)
[2018-08-19 16:36] VITALS: BP 139/80
== END 2018-08-19 16:37 | disposition home or self-care (01) ==
LOC: ED 08:23
DX: S20.211A Contusion of right front wall of thorax, initial encounter (principal); T14.8XXA Other injury of unspecified body region, initial encounter; X50.9XXA Other and unspecified overexertion or strenuous movements or postures, initial encounter; Y92.9 Unspecified place or not applicable; I25.10 Atherosclerotic heart disease of native coronary artery without angina pectoris; E66.9 Obesity, unspecified; I10 Essential (primary) hypertension; E78.5 Hyperlipidemia, unspecified; Z87.891 Personal history of nicotine dependence; Z86.718 Personal history of other venous thrombosis and embolism
CPT/HCPCS: 36415; 74177; 76705; 80053; 83605; 84484; 85025; 93005; 96374; 99284; A9270-GY; J1885; Q9967

== ENCOUNTER 2018-11-25 06:35 | Day surgery (SDC) | payer OTHER ==
[~2018-11-25 06:35] MED LIST changes: +Acetaminophen TAB* 325 MG PO PRN; -Buffered Lidocaine 0.9% SYRIN* 5 ML/SYR SYRINGE INTRADERM ONE; -Sodium Citrate/Citric Acid* 15 ML UDC PO ONE
[2018-11-25] MEDS ORDERED: fentaNYL* 50 MCG/ML 2 ML VIAL (100 MCG VIAL) ONE (07:47)
[2018-11-25] MEDS ORDERED: Midazolam* 1 MG/ML 5 ML VIAL (5 MG) ONE (07:48)
[2018-11-25 09:00] VITALS: BP 144/85
--- NOTE | 2018-11-25 12:02 | OP ---
DATE OF OPERATION: 11/25/18 - [facility] DATE OF : 61 SURGEON: Arslan Dillon MD ANESTHESIA: Monitored anesthesia care. PRE-OP DIAGNOSIS: Cataract, right eye. POST-OP DIAGNOSIS: Cataract, right eye. OPERATIVE PROCEDURE: Extracapsular cataract extraction of the right eye with intraocular lens implant. IMPLANT: SN60WF 20.5 diopter lens to the right eye. COMPLICATIONS: None. DESCRIPTION OF PROCEDURE: The patient was given phenylephrine 2.5 % and cyclopentolate 1% eye drops to the operative eye in the preoperative area. The patient was taken to the operating room where a time-out was taken to identify the correct patient, site, and side of surgery. The patient's right eye was prepped and draped in the usual sterile fashion with 5% Betadine. A second time- out was taken to verify the correct patient, side, and site of surgery, as well as the correct lens implant. A lid speculum was placed to the right eye. A 1mm paracentesis blade was used to make a clear corneal incision. Preservative-free 1% lidocaine was injected into the anterior chamber. DisCoVisc was then injected into the anterior chamber. A 2.75 mm keratome blade was used to make a triplanar incision. A cystotome initiated a capsulorrhexis, which was completed with Utrata forceps in a continuous and curvilinear manner. Hydrodissection of the lens was performed with BSS on a cannula. The lens could be spun in a capsular bag. The phacoemulsification handpiece was used with a divide-and- conquer technique to remove the nucleus. The I/A handpiece then removed the residual cortical lens material. DisCoVisc was injected to inflate the capsular bag. The planned SN60WF 20.5 diopter lens was injected into the capsular bag. The residual DisCoVisc was removed from the eye with the I/A handpiece. The corneal incisions were hydrated and no leaks occurred at physiologic pressure around 20 mmHg per palpation. The lid speculum was removed and drapes were removed. Maxitrol ointment was placed to the surface of the operative eye. An adhesive patch and shield was then placed on the operative eye. The patient was taken to the post-operative area in stable condition. [id number]/[facility] #: [id number] [facility]
[2018-11-25] MEDS ORDERED: Tropicamide 1% OPTH.SOL* BTL ONE (15:51)
[2018-11-25] MEDS ORDERED: Ketorolac 0.5% OPHTH (NF) 0.5 % 5 ML BTL ONE (15:51)
[2018-11-25] MEDS ORDERED: Cyclopentolate 1% OPTH.SOL* 2 ML BTL ONE (15:51)
[2018-11-25] MEDS ORDERED: Lidocaine 1% MPF ** 5 ML VIAL ONE (15:51)
[2018-11-25] MEDS ORDERED: acetaZOLAMIDE TAB* 250 MG ONE (15:51)
[2018-11-25] MEDS ORDERED: Neomycin/Polymy/Dex OPHTH.OIN* 3.5 GM ONE (15:51)
[2018-11-25] MEDS ORDERED: Tetracaine 0.5% OPTH.SOL 4 ML* 1 DROP BTL ONE (15:51)
[2018-11-25] MEDS ORDERED: Povidone Iodine 5% OPTH* 30 ML BTL ONE (15:51)
[2018-11-25] MEDS ORDERED: Phenylephrine OPHTH SOL 2.5%* 2 ML ONE (15:51)
== END 2018-11-25 09:07 | disposition home or self-care (01) ==
LOC: OREAST 06:35
PROVIDERS: ATTEND Student in an Organized Health Care Education/Training Program
DX: H25.811 Combined forms of age-related cataract, right eye (principal); I10 Essential (primary) hypertension; E78.00 Pure hypercholesterolemia, unspecified; Z87.891 Personal history of nicotine dependence; G47.33 Obstructive sleep apnea (adult) (pediatric)
CPT/HCPCS: A9270-GY; J2250; J3010; V2632

== ENCOUNTER 2018-12-02 10:37 | Day surgery (SDC) | payer OTHER ==
[~2018-12-02 10:37] MED LIST changes: +Cyclopentolate 1% OPTH.SOL* 2 ML BTL ONE; +Ketorolac 0.5% OPHTH (NF) 0.5 % 5 ML BTL ONE; +Lidocaine 1% MPF ** 5 ML VIAL ONE; +Neomycin/Polymy/Dex OPHTH.OIN* 3.5 GM ONE; +Phenylephrine OPHTH SOL 2.5%* 2 ML ONE; +Povidone Iodine 5% OPTH* 30 ML BTL ONE; +Tetracaine 0.5% OPTH.SOL 4 ML* 1 DROP BTL ONE; +Tropicamide 1% OPTH.SOL* BTL ONE; +acetaZOLAMIDE TAB* 250 MG ONE
[2018-12-02] MEDS ORDERED: fentaNYL* 50 MCG/ML 5 ML VIAL (250 MCG VIAL) ONE (11:45)
[2018-12-02] MEDS ORDERED: Midazolam* 1 MG/ML 2 ML VIAL (2 MG) ONE ×2 (11:45→12:32)
[2018-12-02 14:22] VITALS: BP 132/82
--- NOTE | 2018-12-02 16:02 | OP ---
DATE OF OPERATION: 12/02/2018 - [facility] DATE OF : 1965. SURGEON: Arslan Dillon MD ANESTHESIA: Monitored anesthesia care. PREOPERATIVE DIAGNOSIS: Cataract, left eye. POSTOPERATIVE DIAGNOSIS: Cataract, left eye. OPERATIVE PROCEDURE: Extracapsular cataract extraction of the left eye with intraocular lens implant. IMPLANT: SN60WF 19.5 diopter lens to the left eye. COMPLICATIONS: None. DESCRIPTION OF PROCEDURE: The patient was given phenylephrine 2.5 % and cyclopentolate 1% eye drops to the operative eye in the preoperative area. The patient was taken to the operating room where a time-out was taken to identify the correct patient, site, and side of surgery. The patient's left eye was prepped and draped in the usual sterile fashion with 5% Betadine. A second time- out was taken to verify the correct patient, side, and site of surgery, as well as the correct lens implant. A lid speculum was placed to the left eye. A 1mm paracentesis blade was used to make a clear corneal incision. Preservative-free 1% lidocaine was injected into the anterior chamber. DisCoVisc was then injected into the anterior chamber. A 2.75 mm keratome blade was used to make a triplanar incision. A cystotome initiated a capsulorrhexis, which was completed with Utrata forceps in a continuous and curvilinear manner. Hydrodissection of the lens was performed with BSS on a cannula. The lens could be spun in a capsular bag. The phacoemulsification handpiece was used with a divide-and- conquer technique to remove the nucleus. The I/A handpiece then removed the residual cortical lens material. DisCoVisc was injected to inflate the capsular bag. The planned SN60WF 19.5 diopter lens was injected into the capsular bag. The residual DisCoVisc was removed from the eye with the I/A handpiece. The corneal incisions were hydrated and no leaks occurred at physiologic pressure around 20 mmHg per palpation. The lid speculum was removed and drapes were removed. Maxitrol ointment was placed to the surface of the operative eye. An adhesive patch and shield was then placed on the operative eye. The patient was taken to the postoperative area in stable condition. [id number]/[facility] #: [id number] [facility]
== END 2018-12-02 13:18 | disposition home or self-care (01) ==
LOC: OREAST 10:37
PROVIDERS: ATTEND Student in an Organized Health Care Education/Training Program
DX: H25.812 Combined forms of age-related cataract, left eye (principal); I10 Essential (primary) hypertension; E78.00 Pure hypercholesterolemia, unspecified; Z87.891 Personal history of nicotine dependence; J45.909 Unspecified asthma, uncomplicated; G47.33 Obstructive sleep apnea (adult) (pediatric)
CPT/HCPCS: A9270-GY; J2250; J3010; V2632